=== PATIENT | female | born 1985 | race Caucasian/White ===

== ENCOUNTER 2018-04-22 18:44 | Inpatient (IN) ==
[2018-04-22] MEDS ORDERED: LACTATED RINGER'S 1,000 ML IV SCH (19:00)
[2018-04-22] MEDS ORDERED: PENICILLIN G POTASSIUM 6 MU in DEXTROSE 5% 250 ML IV STA (19:00)
[2018-04-22] MEDS ORDERED: PENICILLIN G POTASSIUM 3 MU in DEXTROSE 5% 100 ML IV PRN (19:00)
[2018-04-22] MEDS ORDERED: OXYTOCIN 30 UNITS/500 ML BAG IV PRN (19:00)
--- NOTE | 2018-04-22 19:22 | History & Physical Report ---
Date of Service April 22, 2018 Patient is a 36 yo white female [id number] EDC 04/15/18 who presents at 41 weeks with regular contractions. No ROM or bloody show. GBS positive. Assessment & Plan (1) Normal labor: 41 weeks IUP in labor- GBS positive admit & start PCNG unsure about epidural at this time anticipate vaginal delivery Present on Admission?: Yes History of Present Illness Primary Care Provider: NO PCP Allergies Allergy/AdvReac Type Severity Reaction Status Date / Time No Known Allergies Allergy Unverified 04/22/18 19:19 Home Medications Home Medications Medication Instructions Recorded Confirmed Type vit-iron fum-folic ac 1 tab PO DAILY 04/22/18 04/22/18 History [ Vitamin] Patient History Social History Preferred Language: Frisian Communication Ability: Effective Clinic Coordinator Required: No Beliefs That Will Affect Care: None marital status: Current Living Situation: Family Feels Safe at Home: Yes Safety Concerns: Feels Safe At This Time Smoking Status: Never smoker Hx Alcohol Use: No Hx Substance Use: No Review of Systems All systems reviewed & are unremarkable except as noted in HPI & below Physical Exam Vital Signs (Past 24 Hours): Last Vital Signs Temp 36.5 C 04/22/18 18:50 Pulse 86 04/22/18 18:50 Resp 16 04/22/18 18:50 BP 106/74 04/22/18 18:50 Constitutional: WD/WN, vitals as above Respiratory: normal respiratory effort Cardiovascular: RRR, no murmur, no edema Gastrointestinal (Abdomen): normal bowel sounds, soft, nontender, no hepatosplenomegaly Genitourinary: OB Exam Abdomen: + vertex, + estimated weight (6-7 pounds) and + regular contractions (every 5 minutes) Manual OB Exam: + cervical dilation 6 cm, + cervical effacement 90% and + station 0 OB Exam Monitor Tracing: + external FHT monitor used, + external uterine monitor used and + category I
[2018-04-22 19:28] LABS: Hematocrit (blood only) 36.4 % (37-47); Hemoglobin 12.4 g/dL (12.0-16.0); Mean Corpuscular Volume 91.7 fL (80-100); Platelet Count 152 K/uL (130-400); RDW Coefficient of Variation 12.9 % (11.5-14.5); RDW Standard Deviation 43.5 fL (36.4-46.3); Red Blood Count 3.97 M/uL (4.2-5.4); White Blood Count 10.82 K/uL (4.8-10.8)
[2018-04-22 19:30] LABS: Mean Corpuscular Hgb Conc 34.1 g/dL (32-36)
[2018-04-22] MEDS: LACTATED RINGER'S 1,000 ML IV PRN (23:03)
[2018-04-23] MEDS ORDERED: ePHEDrine sulfate 50 MG/ML AMP ONE (00:24)
[2018-04-23] MEDS ORDERED: fentaNYL citrate 100 MCG/2 ML VIAL ONE (00:24)
[2018-04-23] MEDS ORDERED: BUPIVACAINE 0.25% 30 ML VIAL ONE (00:24)
[2018-04-23] MEDS ORDERED: fentaNYL 2MCG/ML ROPIV 1.25MG/ML 100 ML BAG EPI ONE (00:25)
--- NOTE | 2018-04-23 00:33 | Anesthesiology Consultation ---
Date of Service April 23, 2018 Assessment & Plan (1) Encounter for pre-operative examination: Chart Review Chart Review: Acceptable Risk for Labor Epidural Consults Requested none ASA ASA2 Proposed Anesthesia Anesthesia Type: Labor Epidural Risk / Benefits Reviewed With: PT / POA / Parent / Guardian, Accepts Plan and Informed Consent Obtained History Height/Weight Height: 6 ft 4 in Weight: 58.967 kg Allergies Allergy/AdvReac Type Severity Reaction Status Date / Time No Known Allergies Allergy Unverified 04/22/18 19:19 Medications Home Medications Medication Instructions Recorded Confirmed Last Taken vit-iron fum-folic ac 1 tab PO DAILY 04/22/18 04/22/18 04/21/18 18:00 [ Vitamin] Active Medications Generic Name Dose Route Start Last Admin Trade Name Freq PRN Reason Stop Dose Admin Lactated Ringer's 1,000 mls @ 999 mls/hr 04/22/18 19:00 04/22/18 23:35 Lr IV 05/22/18 18:59 0 mls/hr .Q1H1M PRN Infusion (Pre-Anesthesia) Lactated Ringer's 1,000 mls @ 125 mls/hr 04/22/18 19:00 04/22/18 22:55 Lr IV 04/24/18 18:59 0 mls/hr .Q8H GALLO Infusion Penicillin G Potassium 3 mu/ 106 mls @ 100 mls/hr 04/22/18 19:00 04/22/18 22:55 Dextrose IV 05/02/18 18:59 100 mls/hr Q4H PRN Administration Give until delivery Past Anesthesia History No Hx of Anesthesia Complications and No Family Hx of Anesthesia Complications History of PONV No Motion Sickness Screening History of Motion Sickness: No Social History Smoking Status: Never smoker Hx Alcohol Use: No Hx Substance Use: No Exercise / Class Metabolic Activity II 4-5 Yardwork/Stairs/Walk up hill Physical Exam Vital Signs Last Vital Signs Temp 98.2 F 04/22/18 23:10 Pulse 87 04/23/18 00:26 Resp 18 04/22/18 23:10 BP 104/65 04/22/18 23:10 Pulse Ox 100 04/23/18 00:26 ENMT Mouth: no dentition abnormality Thyromental Distance: > or= 3.5 Finger Breadths Mallampati Class: I Neck normal visual inspection Respiratory normal respiratory effort Auscultation: lungs clear to auscultation bilaterally Cardiovascular Rate/Rhythm: regular rate and regular rhythm Testing Laboratory Results 04/22/18 19:14
[2018-04-23] MEDS ORDERED: ePHEDrine sulfate 50 MG/ML AMP IV PRN (00:53)
[2018-04-23] MEDS ORDERED: ONDANSETRON INJ 2 MG/ML 2 ML VIAL IV PRN (00:53)
[2018-04-23] MEDS ORDERED: NALBUPHINE HCL INJ 10 MG/ML AMP IV PRN (00:53)
[2018-04-23] MEDS ORDERED: DiphenhydrAMINE HCL 50 MG/ML VIAL IV PRN (00:53)
[2018-04-23] MEDS ORDERED: NALOXONE HCL 1 MG in SODIUM CHLORIDE 0.9% 1000ML 1,000 ML IV PRN (00:53)
[2018-04-23] MEDS ORDERED: LACTATED RINGER'S 1,000 ML IV PRN (00:53)
[2018-04-23] MEDS ORDERED: NALOXONE HCL 0.4 MG/1 ML VIAL/CARP IV PRN (00:53)
[2018-04-23] MEDS ORDERED: fentaNYL 2MCG/ML ROPIV 1.25MG/ML 100 ML BAG EPI PRN (00:53)
[2018-04-23] MEDS: LACTATED RINGER'S 1,000 ML IV PRN (02:14)
[2018-04-23] MEDS ORDERED: SUPERCREAM 0.870% 15 GM JAR EXT PRN (02:39)
[2018-04-23] MEDS ORDERED: IBUPROFEN 600 MG TAB PO PRN (02:39)
[2018-04-23] MEDS ORDERED: OXYTOCIN 30 UNITS/500 ML BAG IV PRN (02:39)
[2018-04-23] MEDS ORDERED: ACETAMINOPHEN 325 MG TAB PO PRN (02:39)
[2018-04-23] MEDS ORDERED: HYDROCORTISONE ACETATE 25 MG SUPP PR PRN (02:39)
[2018-04-23] MEDS ORDERED: BENZOCAINE 20% AER SPR 82.5 GM CAN EXT PRN (02:39)
[2018-04-23] MEDS ORDERED: OXYCODONE/ACETAMINOPHEN 5mg/325mg TAB PO PRN (02:39)
--- NOTE | 2018-04-23 03:54 | Anesthesia Procedure Note ---
Date of Service April 23, 2018 Anesthesia Post Epidural Note Vital Signs Vital Signs: Temp Pulse Resp BP Pulse Ox 36.8 C 90 18 90/65 L 99 04/23/18 02:32 04/23/18 03:48 04/23/18 03:37 04/23/18 03:48 04/23/18 02:36 Pain Intensity Bilateral Abdomen: Pain Intensity: 0 Notes Mental Status: alert / awake / arousable Patient Amnestic to Procedure: No Nausea / Vomiting: adequately controlled Pain: adequately controlled Airway Patency, RR, SpO2: stable & adequate BP & HR: stable & adequate Hydration State: stable & adequate Anesthetic Complications: no major complications apparent Epidural: Removed without complications and With tip intact
--- NOTE | 2018-04-23 03:56 | Delivery Summary ---
DATE OF OPERATION: 04/23/2018 DELIVERY NOTE The patient is a 32-year-old 5, para 3-1-0-4 who presented at 41 weeks with regular contractions. Her GBS is positive. When she arrived in labor and delivery, she was 6-7 cm dilated. Penicillin prophylaxis was begun. Her contractions spaced out during the course of 3 hours until the next dose of penicillin was due. At that point, her cervix was unchanged. Membranes were ruptured for clear fluid. The patient had a prolonged decel at that time that recovered with position change and oxygen. heart tones then were again category 1. She progressed to an anterior lip and there was another prolonged deceleration. With position change and oxygen, the heart rate recovered in between contractions. She was then fully dilated and began to push effectively over intact perineum for delivery of a viable female . Mouth and nasopharynx were suctioned after delivery of the body. There was no nuchal cord or any other cord abnormality noted. The infant was placed on the mother's abdomen for further attention. There was vigorous crying and the was moving all 4 limbs. The cord was then clamped and cut and handed off to the nursing staff at the baby bed for further attention and drying. The placenta was then expressed intact with a 3-vessel cord after cord blood was obtained. Estimated blood loss was 300 mL. Mother and were doing well after delivery. I attest to the content of the Intraoperative Record and any orders documented therein. Any exception s are noted below.
--- NOTE | 2018-04-23 08:05 | Obstetrical Progress Note ---
Date of Service April 23, 2018 Assessment & Plan (1) Normal labor: satisfactory recvery continue current care plan. Subjective Ambulation: ambulating normally Voiding: no voiding problems Passing Gas:: Yes Diet Tolerance:: regular diet Lochia:: Moderate Review of Systems All systems reviewed & are unremarkable except as noted in HPI & below Physical Exam Vital Signs (Past 24 Hours) Last Vital Signs Temp 36.8 C 04/23/18 04:50 Pulse 88 04/23/18 04:50 Resp 18 04/23/18 04:50 BP 105/71 04/23/18 04:50 Pulse Ox 100 04/23/18 04:50 Constitutional WD/WN, vitals as above Gastrointestinal (Abdomen) normal bowel sounds, soft, nontender, no hepatosplenomegaly Inspection/Auscultation: abdomen normal to inspection Musculoskeletal Extremities: extremities normal to inspection Genitourinary OB Exam Abdomen: + fundal height Fundus: + firm and + relation to umbilicus (2 below U)
[2018-04-23] MEDS: DOCUSATE SODIUM 100 MG CAP PO SCH ×2 (08:19→20:28)
[2018-04-23] MEDS: PRENATAL VITAMIN 1 TAB PO SCH (08:20)
[2018-04-23] MEDS ORDERED: BISACODYL 5 MG TABEC PO SCH (20:00)
[2018-04-24] MEDS ORDERED: BISACODYL 10 MG SUPP PR PRN (06:00)
[2018-04-24 06:44] LABS: Hematocrit (blood only) 34.5 % (37-47); Hemoglobin 11.6 g/dL (12.0-16.0); Mean Corpuscular Hgb Conc 33.6 g/dL (32-36); Mean Corpuscular Volume 92.2 fL (80-100); Mean Platelet Volume 9.8 fL (7.4-10.4); Platelet Count 151 K/uL (130-400); RDW Coefficient of Variation 13.3 % (11.5-14.5); RDW Standard Deviation 44.4 fL (36.4-46.3); Red Blood Count 3.74 M/uL (4.2-5.4); White Blood Count 10.97 K/uL (4.8-10.8)
--- NOTE | 2018-04-24 08:15 | Obstetrical Progress Note ---
Date of Service April 24, 2018 Assessment & Plan (1) Status post vaginal delivery: Patient is a 32 year old PPD 1 s/p -Vital signs WNL bp 94/60 T36.7, -Hemoglobin is 11.6 on ppd1 down from 12.4 on admission. no si/sx of anemia. -Pt is doing clinically well -Continue to encourage ambulation as tolerated, Monitor and control pain with motrin prn, Continue diet as tolerated. -Continue to support and encourage breast feeding -Counseled patient on discharge instructions including Vaginal bleeding, fevers, followup, lifting restrictions, breast feeding, vitamins, and nothing in the vagina for 6 weeks. Pt was agreeable -Plan for d/c today Supervising Physician Co-Signing Physician Notes I have seen/examined patient. I have read above note performed by resident and I agree with above. Any changes/additions are as follows: PPD#1 doing well. Requesting discharge home. Followup in office in 6w. Mary Queen DO [facility] Subjective PT resting in bed this morning with baby in her arms while dad was showering. No acute events overnight.Patient is tolerating her diet, ambulating, passing gas and voiding, and stooling. Reports moderate lochia. Denies H/A, chest pain, palpitations and uti syx. No concerns at this time pain is well controlled. Requesting D/C today. Physical Exam Vital Signs (Past 24 Hours): Last Vital Signs Temp 36.7 C 04/24/18 07:19 Pulse 76 04/24/18 07:19 Resp 16 04/24/18 07:19 BP 94/60 L 04/24/18 07:19 Pulse Ox 99 04/23/18 19:38 Constitutional: WD/WN, vitals as above + thin Eyes: normal visual lao by confrontation Respiratory: normal respiratory effort, lungs clear to auscultation Cardiovascular: RRR, no murmur, no edema Extremities: no calf tenderness Gastrointestinal (Abdomen): normal bowel sounds, soft, nontender, no hepatosplenomegaly (Uterus firm 2 fingers below umbilicus) Skin: no rashes, warm and dry Results & Data Laboratory Results 04/24/18 Range/Units 06:21 WBC 10.97 H (4.8-10.8) K/uL RBC 3.74 L (4.2-5.4) M/uL Hgb 11.6 L (12.0-16.0) g/dL Hct 34.5 L (37-47) % MCV 92.2 (80-100) fL MCH 31.0 (25-34) pg MCHC 33.6 (32-36) g/dL RDW Std Deviation 44.4 (36.4-46.3) fL RDW Coeff of Sander 13.3 (11.5-14.5) % Plt Count 151 (130-400) K/uL MPV 9.8 (7.4-10.4) fL Medications Administered Current Inpatient Medications Acetaminophen (Tylenol) 650 mg PO Q6H PRN PRN Reason: Pain/BOWMAN/Fever Stop: 05/23/18 02:38 Benzocaine (Dermoplast Pain Relieving [place]) 1 appln EXT PRN PRN PRN Reason: Perineal Discomfort Stop: 05/23/18 02:38 Bisacodyl (Dulcolax) 10 mg MS DAILY PRN PRN Reason: No BM on 2nd post- day Stop: 05/24/18 05:59 Cocaine HCl (Supercream 0.870%) 1 gm EXT BID PRN PRN Reason: Hemorrhoidal Inflammation Stop: 05/07/18 02:38 Diphtheria/Pertussis/Tetanus Vacc (Adacel) 0.5 ml IM .ONCE ONE Stop: 04/24/18 09:01 Docusate Sodium (Colace) 100 mg PO BID [facility] Stop: 05/23/18 08:59 Last Admin: 04/23/18 20:28 Dose: 100 mg Documented by: Hydrocortisone (Anusol Hc) 25 mg MS BID PRN PRN Reason: Hemorrhoidal Inflammation Stop: 05/23/18 02:38 Lactated Ringer's (Lr) 1,000 mls @ 999 mls/hr IV .Q1H1M PRN PRN Reason: (Pre-Anesthesia) Stop: 05/22/18 18:59 Last Infusion: 04/23/18 02:27 Dose: 125 mls/hr Documented by: Lactated Ringer's (Lr) 1,000 mls @ 125 mls/hr IV .Q8H GALLO Stop: 04/24/18 18:59 Last Infusion: 04/23/18 01:57 Dose: 999 mls/hr Documented by: Oxytocin (Pitocin) 30 units in 500 mls @ 333.333 mls/hr IV .Q1H30M PRN; Protocol PRN Reason: Bleeding Control Stop: 05/22/18 18:59 Last Admin: 04/23/18 02:31 Dose: 59.94 units/hr, 999 mls/hr Documented by: Oxytocin (Pitocin) 30 units in 500 mls @ 333.333 mls/hr IV .Q1H30M PRN; Protocol PRN Reason: BLEEDING CONTROL Stop: 05/23/18 02:38 Ibuprofen (Motrin) 600 mg PO Q4H PRN PRN Reason: Pain/BOWMAN/Cramping/Fever Stop: 05/23/18 02:38 Oxycodone/Acetaminophen (Percocet 5mg/325mg) 1 tab PO Q4H PRN PRN Reason: Pain not relieved by... Stop: 05/07/18 02:38 Prenat Multivit/Partition Making Machine Operator/Iron/Folic Ac ( Vitamin) 1 tab PO [facility] Stop: 05/23/18 08:59 Last Admin: 04/23/18 08:20 Dose: Not Given Documented by: Resident Activity Tracking Resident Involvement: Resident Care Provided Care Provided: Adult Hospital Medicine
[2018-04-24] MEDS ORDERED: DIPHTHERIA/TETANUS/PERTUSSIS 0.5 ML SYR/VIAL IM ONE (09:00)
[2018-04-24] MEDS: PRENATAL VITAMIN 1 TAB PO SCH (10:08)
[2018-04-24] MEDS: DOCUSATE SODIUM 100 MG CAP PO SCH (10:09)
== END 2018-04-24 13:43 | disposition home or self-care (01) | DRG 807 ==
LOC: 4S1 18:44 → 4S2 04-23 05:02